=== PATIENT | male | born 1935 | race Caucasian/White ===

== ENCOUNTER 2022-10-24 21:38 | Inpatient (IN) | payer MEDICARE ==
[2022-10-24 22:03] LABS: #Basophils 0.1 thou/uL (0.0-0.2); #Monocytes 1.6 thou/uL (0.11-0.59); #Neutrophils 10.5 thou/uL (1.40-6.50); %Basophils 0.6 % (0.0-1.0); %Lymphocytes 9.8 % (21.0-51.0); %Monocytes 11.5 % (0.0-10.0); %Neutrophils 76.8 % (42.0-75.0); Hematocrit 50.2 % (42.0-52.0); Hemoglobin 16.1 g/dL (14.0-18.0); Mean Corpuscular HGB CONC 32.1 g/dL (32.0-36.0); Mean Corpuscular Volume 99.8 fl (78.0-98.0); Mean Platelet Volume 9.5 fL (7.4-10.4); Platelet Count 245 10x3/uL (130-400); RBC Distribution Width 13.8 % (11.5-14.5); Red Blood Cell (RBC) Count 5.03 mill/uL (4.70-6.10); White Blood Cell (WBC) Count 13.7 10x3/uL (4.8-10.8)
[2022-10-24] MEDS ORDERED: Cefepime 2 GM VIAL ONE (22:20)
[2022-10-24] MEDS ORDERED: Acetaminophen 650 MG Suppository ONE (22:20)
[2022-10-24 22:21] LABS: INR-International Normal Ratio 1.4; Prothrombin Time 17.5 sec (12.0-14.7)
[2022-10-24 22:22] LABS: PTT 28.4 sec (22.9-36.1)
[2022-10-24] MEDS ORDERED: Vancomycin 1.5 GRAM/300 ML BAG 1.5 GM in Premix Bag 1 BAG IVPB SCH (22:30)
[2022-10-24 22:31] LABS: ALT (SGPT) 21 U/L (8-55); AST (SGOT) 124 U/L (5-34); Albumin 3.6 g/dL (3.4-4.8); Alkaline Phosphatase 108 U/L (40-110); Anion Gap 27 mmol/L (10-20); BUN (Urea Nitrogen) 60 mg/dL (8.4-25.7); Bilirubin, Total 1.3 mg/dL (0.2-1.2); CK (CPK) 1694 U/L (30-200); Calc. Creatinine Clearance 0 mL/min (70-130); Calcium 9.6 mg/dL (7.8-10.44); Carbon Dioxide 12 mmol/L (23-31); Chloride 114 mmol/L (98-107); Estimated GFR 14; Globulin 3.8 g/dL (2.4-3.5); Glucose 127 mg/dL (83-110); Potassium 3.8 mmol/L (3.5-5.1); Protein, Total 7.4 g/dL (5.8-8.1); Sodium 149 mmol/L (136-145)
[2022-10-24 22:32] LABS: Base Excess -14.2 mEq/L (-2.0 to +3.0); Calcium, Ionized (venous) 1.13 mmol/L (1.16-1.32); Chloride (VBG) 112 mmol/L (98-106); Hematocrit-VBG 53 % (42.0-52.0); Hemoglobin (Hb) 17.9 g/dL (12.6-17.4)
[2022-10-24 22:34] LABS: pH (venous) 7.184 (7.32-7.43)
[2022-10-24 22:41] LABS: Bilirubin Small (Negative); Blood, Urine Large (Negative); Glucose, Urine (Dipstick) 100 mg/dL (Negative); Ketone, Urine Trace mg/dL (Negative); Leukocyte Negative (Negative); Nitrite Negative (Negative); Protein, Urine (Dipstick) > or equal to 300 mg/dL (Neg-Trace)
[2022-10-24 22:43] LABS: Specific Gravity, Urine 1.023 (1.002-1.036)
[2022-10-24 22:46] LABS: Clarity Cloudy (Clear)
[2022-10-24 22:47] LABS: RBC/HPF Greater than 50 HPF (0-3)
[2022-10-24 22:50] LABS: Bacteria/HPF 2+ HPF (None Seen); CAUTI Indications for Culture Alt mental st,lethar
[2022-10-24 22:54] LABS: Renal Epithelial 0-3 HPF (None Seen); Squamous Epithelial 0-3 HPF (0-3)
[2022-10-24 22:57] LABS: Urine Culture Reflex No No
[2022-10-24 23:07] LABS: CKMB 11.3 ng/mL (0-6.6)
[2022-10-24] MEDS ORDERED: Sodium Bicarb 50 MEQ/50 ML VIAL IVP SCH (23:15)
[2022-10-24] MEDS ORDERED: Sodium Bicarb 50 MEQ/50 ML VIAL ONE (23:49)
[2022-10-24] MEDS ORDERED: Heparin 10,000 UNITS/ 10 ML VIAL ONE (23:49)
[2022-10-24] MEDS ORDERED: Aspirin 300 MG Suppository ONE (23:49)
[2022-10-24] MEDS ORDERED: Heparin 25,000 units/D5W 0 ML ONE (23:50)
[2022-10-25] MEDS ORDERED: NOREPINEPHRINE 8 MG/250 ML-D5W 250 ML IVPB PRN (00:02)
[2022-10-25] MEDS ORDERED: Lorazepam 1 MG TAB PO PRN (00:08)
[2022-10-25] MEDS ORDERED: Lorazepam 2 MG/ML VIAL IM PRN (00:08)
[2022-10-25] MEDS ORDERED: Ondansetron ODT 4 MG TAB PO PRN (00:08)
[2022-10-25] MEDS ORDERED: Sodium Bicarbonate 150 MEQ in Dextrose 5% in Water 1,000 ML IV SCH (00:15)
[2022-10-25] MEDS ORDERED: Morphine 2 MG/ML VIAL SLOW IVP PRN (00:15)
[2022-10-25] MEDS ORDERED: Propofol 1,000 MG/100 ML VIAL IV PRN (00:15)
[2022-10-25] MEDS ORDERED: Fentanyl CADD 100 ML IV SCH (00:15)
[2022-10-25] MEDS ORDERED: DISCONTINUE PREVIOUS NARCOTIC PAIN MEDICATIONS AND BENZODIAZEPINES FS SCH (00:15)
[2022-10-25] MEDS ORDERED: Lorazepam 1 MG TAB PO SCH (00:15)
[2022-10-25] MEDS ORDERED: Fentanyl BOLUS 250 ML IVPB PRN (00:15)
[2022-10-25] MEDS ORDERED: Lorazepam 2 MG/ML VIAL SLOW IVP PRN (00:15)
[2022-10-25] MEDS ORDERED: Propofol BOLUS 1,000 MG/100 ML VIAL IV PRN (00:15)
[2022-10-25] MEDS ORDERED: Electrolyte Replacement Protocol 1 EACH FS SCH (00:15)
[2022-10-25] MEDS ORDERED: Ventilator Sedation Protocol 1 EACH FS SCH (00:15)
[2022-10-25] MEDS ORDERED: Acetaminophen 650 MG/20.3 ML UDCUP PO PRN (00:19)
[2022-10-25 00:52] LABS: #Basophils 0.1 thou/uL (0.0-0.2); #Eosinphils 0.2 thou/uL (0.0-0.7); #Monocytes 2.9 thou/uL (0.11-0.59); #Neutrophils 13.6 thou/uL (1.40-6.50); %Basophils 0.4 % (0.0-1.0); %Eosinophils 0.8 % (0.0-10.0); %Lymphocytes 12.7 % (21.0-51.0); %Monocytes 14.9 % (0.0-10.0); %Neutrophils 70.3 % (42.0-75.0); Hematocrit 48.2 % (42.0-52.0); Hemoglobin 15.8 g/dL (14.0-18.0); Mean Corpuscular HGB CONC 32.8 g/dL (32.0-36.0); Mean Corpuscular Volume 97.8 fl (78.0-98.0); Mean Platelet Volume 9.5 fL (7.4-10.4); Platelet Count 254 10x3/uL (130-400); RBC Distribution Width 13.9 % (11.5-14.5); Red Blood Cell (RBC) Count 4.93 mill/uL (4.70-6.10); White Blood Cell (WBC) Count 19.4 10x3/uL (4.8-10.8)
[2022-10-25] MEDS ORDERED: Glucagon 1 MG/ML KIT IM PRN (00:56)
[2022-10-25] MEDS ORDERED: Dextrose 5% in Water 1,000 ML IV PRN (00:56)
[2022-10-25] MEDS ORDERED: Dextrose 50% Abboject 50 ML SYRINGE SLOW IVP PRN (00:56)
[2022-10-25] MEDS ORDERED: Pantoprazole 40 MG VIAL IVP SCH (01:00)
[2022-10-25] MEDS ORDERED: Piperacillin/Tazobactam 3.375 GM in Sodium Chloride 0.9% 100 ML IVPB SCH ×3 (01:00→06:00)
[2022-10-25] MEDS ORDERED: DC Sedation Protocol FS ONE (01:08)
[2022-10-25 01:17] LABS: Lactic Acid 8.9 mmol/L (0.5-2.2)
[2022-10-25 01:27] LABS: ALV-art Gradient 13.005 mmHg (0-20); Actual Bicarbonate (HCO3a) 18.3 mEq/L (22-28); Base Excess (BEa) -5.1 mEq/L (-2.0 to +3.0); CO2 Tension 30.5 mmHg (35.0-45.0); Calcium, Ionized (arterial) 1.21 mmol/L (1.12-1.30); Carboxyhemoglobin (COHb) 0.3 gm% (0.0-3.0); Hematocrit-ABG 48 % (42.0-52.0); Hemoglobin (Hb) 16.2 g/dL (14.0-18.0); O2 Tension (PaO2), arterial 98.6 mmHg (> 60.0); Potassium - ABG Lab 3.57 mmol/L (3.70-5.30); pH, Arterial 7.396 (7.35-7.45)
[2022-10-25 01:42] LABS: Magnesium 2.6 mg/dL (1.6-2.6); Phosphorus 5.2 mg/dL (2.3-4.7)
[2022-10-25 01:44] LABS: Acetaminophen Less than 10 mcg/mL (10.0-30.0); Alcohol Less than 10.0 mg/dL (Less than 10); Salicylate Less than 8.0 mg/dL (15.0-30.0)
[2022-10-25] MEDS: Thiamine HCl 200 MG/2 ML VIAL SLOW IVP SCH (02:01)
[2022-10-25 02:51] LABS: Troponin I 1.098 ng/mL (< 0.028)
[2022-10-25 03:09] LABS: Amphetamine Not Detected (NotDetected); Barbiturates Screen Not Detected (NotDetected); Benzodiazepine Screen Not Detected (NotDetected); Cocaine Metabolite Screen Not Detected (NotDetected); Methadone Not Detected (NotDetected); Methamphetamine Not Detected (NotDetected); Opiate Screen Not Detected (NotDetected); Oxycodone Screen Not Detected (NotDetected); Phencyclidine (PCP) Not Detected (NotDetected); THC/Cannabinoid Screen Not Detected (NotDetected); Tricyclic Screen Not Detected (NotDetected)
[2022-10-25 04:10] LABS: Lactic Acid 3.1 mmol/L (0.5-2.2)
[2022-10-25 04:17] LABS: Troponin I 1.794 ng/mL (< 0.028)
[2022-10-25 05:59] LABS: ALT (SGPT) 29 U/L (8-55); AST (SGOT) 224 U/L (5-34); Albumin 3.4 g/dL (3.4-4.8); Alkaline Phosphatase 95 U/L (40-110); Anion Gap 20 mmol/L (10-20); BUN (Urea Nitrogen) 69 mg/dL (8.4-25.7); Bilirubin, Total 1.7 mg/dL (0.2-1.2); Calc. Creatinine Clearance 10 mL/min (70-130); Calcium 9.2 mg/dL (7.8-10.44); Carbon Dioxide 18 mmol/L (23-31); Chloride 112 mmol/L (98-107); Estimated GFR 14; Globulin 3.8 g/dL (2.4-3.5); Glucose 184 mg/dL (83-110); Potassium 3.4 mmol/L (3.5-5.1); Protein, Total 7.2 g/dL (5.8-8.1); Sodium 147 mmol/L (136-145)
[2022-10-25] MEDS: Sodium Bicarbonate 50 MEQ in Sodium Chloride 0.45% 1,000 ML IV SCH ×4 (07:44→21:23)
[2022-10-25] MEDS ORDERED: Potassium Chloride 20 MEQ TAB PO SCH (08:00)
[2022-10-25 09:32] LABS: Creatinine, Urine 183.58 mg/dL (63-166)
[2022-10-25] MEDS: Pantoprazole 40 MG VIAL IVP SCH ×2 (09:53→21:22)
[2022-10-25] MEDS: Folic Acid 1 MG TAB PO SCH (09:53)
[2022-10-25] MEDS: Multivit, Therapeutic 1 TAB PO SCH (09:53)
[2022-10-25] MEDS ORDERED: Potassium Chloride 20 MEQ in Premix Bag 1 BAG IVPB SCH (10:30)
[2022-10-25 10:33] LABS: Hematocrit 43.3 % (42.0-52.0)
[2022-10-25 10:41] LABS: Hemoglobin 14.8 g/dL (14.0-18.0)
[2022-10-25 11:01] LABS: Anion Gap 20 mmol/L (10-20); BUN (Urea Nitrogen) 68 mg/dL (8.4-25.7); Calc. Creatinine Clearance 11 mL/min (70-130); Carbon Dioxide 22 mmol/L (23-31); Chloride 111 mmol/L (98-107); Estimated GFR 14; Glucose 118 mg/dL (83-110); Potassium 3.3 mmol/L (3.5-5.1); Sodium 150 mmol/L (136-145)
[2022-10-25 11:14] LABS: CK (CPK) 4973 U/L (30-200)
[2022-10-25] MEDS ORDERED: Sodium Chloride 0.9% 1,000 ML IV SCH (14:45)
[2022-10-25] MEDS: Dextrose 5% in Water 1,000 ML IV SCH (15:03)
[2022-10-25 16:00] LABS: Anion Gap 18 mmol/L (10-20); BUN (Urea Nitrogen) 64 mg/dL (8.4-25.7); Calc. Creatinine Clearance 11 mL/min (70-130); Calcium 8.4 mg/dL (7.8-10.44); Carbon Dioxide 23 mmol/L (23-31); Chloride 110 mmol/L (98-107); Estimated GFR 16; Glucose 107 mg/dL (83-110); Potassium 3.8 mmol/L (3.5-5.1); Sodium 147 mmol/L (136-145)
[2022-10-25 17:47] LABS: Hematocrit 45.2 % (42.0-52.0)
[2022-10-25 21:35] LABS: Anion Gap 18 mmol/L (10-20); BUN (Urea Nitrogen) 62 mg/dL (8.4-25.7); Calc. Creatinine Clearance 13 mL/min (70-130); Carbon Dioxide 20 mmol/L (23-31); Chloride 110 mmol/L (98-107); Potassium 3.5 mmol/L (3.5-5.1); Sodium 144 mmol/L (136-145)
[2022-10-25 21:36] LABS: Estimated GFR 18; Glucose 122 mg/dL (83-110)
[2022-10-25] MEDS ORDERED: Cefepime 1 GM in Sodium Chloride 0.9% 100 ML IVPB SCH (22:00)
[2022-10-26] MEDS: Dextrose 5% in Water 1,000 ML IV SCH
[2022-10-26] MEDS ORDERED: Lorazepam 1 MG TAB PO PRN (00:08)
[2022-10-26] MEDS: Thiamine HCl 200 MG/2 ML VIAL SLOW IVP SCH (00:12)
[2022-10-26] MEDS: Sodium Bicarbonate 50 MEQ in Sodium Chloride 0.45% 1,000 ML IV SCH ×2 (03:50→08:05)
[2022-10-26 07:33] LABS: #Eosinphils 0.1 thou/uL (0.0-0.7); #Monocytes 0.9 thou/uL (0.11-0.59); #Neutrophils 7.5 thou/uL (1.40-6.50); %Basophils 0.2 % (0.0-1.0); %Eosinophils 0.4 % (0.0-10.0); %Monocytes 7.6 % (0.0-10.0); Mean Corpuscular HGB CONC 34.1 g/dL (32.0-36.0); Mean Corpuscular Hemoglobin 32.1 pg (27.0-31.0); Mean Platelet Volume 9.8 fL (7.4-10.4); Platelet Count 162 10x3/uL (130-400); RBC Distribution Width 13.7 % (11.5-14.5); Red Blood Cell (RBC) Count 3.65 mill/uL (4.70-6.10); White Blood Cell (WBC) Count 11.3 10x3/uL (4.8-10.8)
[2022-10-26 07:36] LABS: Hematocrit 34.3 % (42.0-52.0); Hemoglobin 11.7 g/dL (14.0-18.0)
[2022-10-26 08:00] LABS: Anion Gap 11 mmol/L (10-20); BUN (Urea Nitrogen) 49 mg/dL (8.4-25.7); CK (CPK) 2918 U/L (30-200); Calc. Creatinine Clearance 20 mL/min (70-130); Calcium 7.3 mg/dL (7.8-10.44); Carbon Dioxide 27 mmol/L (23-31); Chloride 105 mmol/L (98-107); Estimated GFR 27; Glucose 117 mg/dL (83-110); Sodium 140 mmol/L (136-145)
[2022-10-26] MEDS: Pantoprazole 40 MG VIAL IVP SCH ×2 (08:05→20:11)
[2022-10-26] MEDS: Multivit, Therapeutic 1 TAB PO SCH (08:22)
[2022-10-26] MEDS: Folic Acid 1 MG TAB PO SCH (08:22)
[2022-10-26] MEDS: Lactated Ringer's 1,000 ML IV SCH ×4 (08:59→20:11)
[2022-10-26 09:39] LABS: Phosphorus 2.5 mg/dL (2.3-4.7)
[2022-10-26] MEDS ORDERED: Potassium Chloride 20 MEQ in Premix Bag 1 BAG IVPB SCH (10:00)
[2022-10-26] MEDS ORDERED: Dextrose 5% in Water 1,000 ML IV SCH (13:00)
[2022-10-26] MEDS: Apixaban 2.5 MG TAB PO SCH (20:11)
[2022-10-27] MEDS ORDERED: Lorazepam 1 MG TAB PO PRN (00:08)
[2022-10-27] MEDS ORDERED: Lorazepam 0.5 MG TAB PO SCH (00:15)
[2022-10-27] MEDS: Thiamine HCl 200 MG/2 ML VIAL SLOW IVP SCH (01:17)
[2022-10-27] MEDS: Lactated Ringer's 1,000 ML IV SCH ×2 (01:18→05:23)
[2022-10-27 04:15] LABS: #Eosinphils 0.1 thou/uL (0.0-0.7); #Monocytes 0.7 thou/uL (0.11-0.59); #Neutrophils 5.5 thou/uL (1.40-6.50); %Basophils 0.2 % (0.0-1.0); %Lymphocytes 27.9 % (21.0-51.0); %Monocytes 7.7 % (0.0-10.0); %Neutrophils 62.7 % (42.0-75.0); Hematocrit 30.7 % (42.0-52.0); Hemoglobin 10.4 g/dL (14.0-18.0); Mean Corpuscular HGB CONC 33.9 g/dL (32.0-36.0); Mean Corpuscular Hemoglobin 32.3 pg (27.0-31.0); Mean Corpuscular Volume 95.3 fl (78.0-98.0); Platelet Count 151 10x3/uL (130-400); RBC Distribution Width 13.4 % (11.5-14.5); Red Blood Cell (RBC) Count 3.22 mill/uL (4.70-6.10); White Blood Cell (WBC) Count 8.7 10x3/uL (4.8-10.8)
[2022-10-27 04:41] LABS: Anion Gap 11 mmol/L (10-20); BUN (Urea Nitrogen) 28 mg/dL (8.4-25.7); Calc. Creatinine Clearance 36 mL/min (70-130); Calcium 7.2 mg/dL (7.8-10.44); Carbon Dioxide 25 mmol/L (23-31); Chloride 104 mmol/L (98-107); Estimated GFR 56; Glucose 82 mg/dL (83-110); Potassium 3.3 mmol/L (3.5-5.1); Sodium 137 mmol/L (136-145)
[2022-10-27 08:02] LABS: CK (CPK) 2058 U/L (30-200); Magnesium 1.5 mg/dL (1.6-2.6); Phosphorus 1.8 mg/dL (2.3-4.7)
[2022-10-27] MEDS ORDERED: Magnesium Sulfate In Water 4 GM in Premix Bag 1 BAG IVPB SCH (08:15)
[2022-10-27] MEDS ORDERED: Potassium Phosphate 22 MMOL in Sodium Chloride 0.9% 250 ML 250 ML IVPB SCH (08:15)
[2022-10-27] MEDS ORDERED: PHOS-NAK 1 PKT PACK PO SCH (08:30)
[2022-10-27] MEDS: Dextrose 5%-Lactated Ringers 1,000 ML IV SCH ×3 (09:13→23:04)
[2022-10-27] MEDS: Multivit, Therapeutic 1 TAB PO SCH (09:14)
[2022-10-27] MEDS: Apixaban 2.5 MG TAB PO SCH ×2 (09:14→22:17)
[2022-10-27] MEDS: Folic Acid 1 MG TAB PO SCH (09:15)
[2022-10-27] MEDS: Pantoprazole 40 MG VIAL IVP SCH (09:15)
[2022-10-27] MEDS: guaiFENesin 200 MG TAB PO PRN ×2 (09:15→18:45)
[2022-10-27] MEDS ORDERED: PROPOFOL 200 MG/20 ML VIAL ONE (13:04)
[2022-10-28] MEDS ORDERED: Lorazepam 0.5 MG TAB PO PRN (00:08)
[2022-10-28] MEDS ORDERED: Lorazepam 2 MG/ML VIAL SLOW IVP SCH (03:00)
[2022-10-28] MEDS: Thiamine 100 MG TAB PO SCH (04:42)
[2022-10-28 05:12] LABS: #Basophils 0.1 thou/uL (0.0-0.2); #Eosinphils 0.1 thou/uL (0.0-0.7); #Monocytes 0.7 thou/uL (0.11-0.59); #Neutrophils 5.8 thou/uL (1.40-6.50); %Basophils 0.5 % (0.0-1.0); %Eosinophils 1.4 % (0.0-10.0); %Lymphocytes 27.4 % (21.0-51.0); %Monocytes 7.5 % (0.0-10.0); %Neutrophils 62.3 % (42.0-75.0); Mean Corpuscular HGB CONC 34.3 g/dL (32.0-36.0); Mean Corpuscular Hemoglobin 32.2 pg (27.0-31.0); Mean Corpuscular Volume 93.8 fl (78.0-98.0); Mean Platelet Volume 10.4 fL (7.4-10.4); Platelet Count 169 10x3/uL (130-400); RBC Distribution Width 13.2 % (11.5-14.5); Red Blood Cell (RBC) Count 3.73 mill/uL (4.70-6.10); White Blood Cell (WBC) Count 9.4 10x3/uL (4.8-10.8)
[2022-10-28 05:47] LABS: Phosphorus 2.4 mg/dL (2.3-4.7)
[2022-10-28 05:49] LABS: Anion Gap 9 mmol/L (10-20); BUN (Urea Nitrogen) 17 mg/dL (8.4-25.7); Calc. Creatinine Clearance 48 mL/min (70-130); Calcium 7.6 mg/dL (7.8-10.44); Carbon Dioxide 28 mmol/L (23-31); Chloride 104 mmol/L (98-107); Estimated GFR 77; Glucose 84 mg/dL (83-110); Magnesium 2.1 mg/dL (1.6-2.6); Sodium 138 mmol/L (136-145)
[2022-10-28] MEDS ORDERED: Potassium Chloride 40 MEQ in Premix Bag 1 BAG IVPB SCH (08:45)
[2022-10-28] MEDS ORDERED: Ergocalciferol 1.25 MG(50,000 UNITS) CAP PO SCH (09:00)
[2022-10-28] MEDS: Potassium Chloride 20 MEQ TAB PO SCH ×2 (10:08→11:27)
[2022-10-28] MEDS: Apixaban 2.5 MG TAB PO SCH ×2 (10:08→20:51)
[2022-10-28] MEDS: Folic Acid 1 MG TAB PO SCH (10:08)
[2022-10-28] MEDS: Multivit, Therapeutic 1 TAB PO SCH (10:09)
[2022-10-28] MEDS: Potassium Chloride 40 MEQ in Dextrose 5%-Lactated Ringers 1,000 ML IV SCH ×2 (11:01→20:53)
[2022-10-28] MEDS ORDERED: Thiamine HCl 200 MG/2 ML VIAL IM SCH (12:15)
[2022-10-28] MEDS: QUEtiapine 25 MG TAB PO SCH (20:51)
[2022-10-29 04:47] LABS: #Eosinphils 0.1 thou/uL (0.0-0.7); #Neutrophils 6.5 thou/uL (1.40-6.50); %Basophils 0.4 % (0.0-1.0); %Eosinophils 1.1 % (0.0-10.0); %Monocytes 10.2 % (0.0-10.0); %Neutrophils 65.7 % (42.0-75.0); Hematocrit 32.7 % (42.0-52.0); Hemoglobin 11.2 g/dL (14.0-18.0); Mean Corpuscular HGB CONC 34.3 g/dL (32.0-36.0); Mean Corpuscular Hemoglobin 32.6 pg (27.0-31.0); Mean Corpuscular Volume 95.1 fl (78.0-98.0); Mean Platelet Volume 10.2 fL (7.4-10.4); Platelet Count 189 10x3/uL (130-400); RBC Distribution Width 13.4 % (11.5-14.5); Red Blood Cell (RBC) Count 3.44 mill/uL (4.70-6.10); White Blood Cell (WBC) Count 9.9 10x3/uL (4.8-10.8)
[2022-10-29 05:09] LABS: Anion Gap 12 mmol/L (10-20); BUN (Urea Nitrogen) 10 mg/dL (8.4-25.7); CK (CPK) 1088 U/L (30-200); Calc. Creatinine Clearance 55 mL/min (70-130); Calcium 7.8 mg/dL (7.8-10.44); Carbon Dioxide 26 mmol/L (23-31); Chloride 106 mmol/L (98-107); Estimated GFR 84; Glucose 61 mg/dL (83-110); Potassium 3.9 mmol/L (3.5-5.1); Sodium 140 mmol/L (136-145)
[2022-10-29] MEDS: Thiamine 100 MG TAB PO SCH (05:18)
[2022-10-29] MEDS: Multivit, Therapeutic 1 TAB PO SCH (12:28)
[2022-10-29] MEDS: Folic Acid 1 MG TAB PO SCH (12:28)
[2022-10-29] MEDS: Apixaban 2.5 MG TAB PO SCH ×2 (12:28→20:50)
[2022-10-29] MEDS: Lorazepam 2 MG/ML VIAL SLOW IVP PRN ×2 (12:38→21:26)
[2022-10-29] MEDS: Potassium Chloride 40 MEQ in Dextrose 5%-Lactated Ringers 1,000 ML IV SCH ×2 (12:43→21:35)
[2022-10-29] MEDS: Acetaminophen 650 MG Suppository PR PRN (14:36)
[2022-10-29] MEDS: QUEtiapine 25 MG TAB PO SCH (20:50)
[2022-10-30] MEDS: Lorazepam 2 MG/ML VIAL SLOW IVP PRN ×2 (00:32→21:54)
[2022-10-30] MEDS ORDERED: Lorazepam 2 MG/ML VIAL SLOW IVP SCH (01:30)
[2022-10-30] MEDS: Acetaminophen 650 MG Suppository PR PRN ×2 (01:34→21:18)
[2022-10-30 04:44] LABS: #Eosinphils 0.1 thou/uL (0.0-0.7); #Monocytes 1.2 thou/uL (0.11-0.59); #Neutrophils 5.5 thou/uL (1.40-6.50); %Basophils 0.5 % (0.0-1.0); %Eosinophils 0.9 % (0.0-10.0); %Lymphocytes 15.9 % (21.0-51.0); %Monocytes 14.5 % (0.0-10.0); %Neutrophils 67.3 % (42.0-75.0); Hematocrit 34.3 % (42.0-52.0); Hemoglobin 11.5 g/dL (14.0-18.0); Mean Corpuscular HGB CONC 33.5 g/dL (32.0-36.0); Mean Corpuscular Volume 95.5 fl (78.0-98.0); Mean Platelet Volume 10.1 fL (7.4-10.4); Platelet Count 197 10x3/uL (130-400); RBC Distribution Width 13.8 % (11.5-14.5); Red Blood Cell (RBC) Count 3.59 mill/uL (4.70-6.10); White Blood Cell (WBC) Count 8.1 10x3/uL (4.8-10.8)
[2022-10-30 05:12] LABS: Anion Gap 15 mmol/L (10-20); BUN (Urea Nitrogen) 8 mg/dL (8.4-25.7); CK (CPK) 1436 U/L (30-200); Calc. Creatinine Clearance 58 mL/min (70-130); Calcium 7.8 mg/dL (7.8-10.44); Carbon Dioxide 21 mmol/L (23-31); Chloride 105 mmol/L (98-107); Estimated GFR 83; Potassium 3.8 mmol/L (3.5-5.1); Sodium 137 mmol/L (136-145)
[2022-10-30 05:15] LABS: Glucose 54 mg/dL (83-110)
[2022-10-30] MEDS: Thiamine 100 MG TAB PO SCH (06:13)
[2022-10-30] MEDS: Potassium Chloride 40 MEQ in Dextrose 5%-Lactated Ringers 1,000 ML IV SCH ×3 (10:12→18:44)
[2022-10-30] MEDS: Multivit, Therapeutic 1 TAB PO SCH (17:15)
[2022-10-30] MEDS: Apixaban 2.5 MG TAB PO SCH ×2 (17:15→21:30)
[2022-10-30] MEDS: Folic Acid 1 MG TAB PO SCH (17:15)
[2022-10-30] MEDS: D5W-AA 4.25% with LYTES 1,000 ML IV SCH (18:45)
[2022-10-30] MEDS ORDERED: Acetaminophen 650 MG Suppository PR SCH (21:30)
[2022-10-30] MEDS: QUEtiapine 25 MG TAB PO SCH (21:30)
[2022-10-30 21:53] LABS: #Basophils 0.1 thou/uL (0.0-0.2); #Eosinphils 0.1 thou/uL (0.0-0.7); #Monocytes 1.1 thou/uL (0.11-0.59); #Neutrophils 5.1 thou/uL (1.40-6.50); %Lymphocytes 27.6 % (21.0-51.0); %Monocytes 12.6 % (0.0-10.0); %Neutrophils 57.2 % (42.0-75.0); Hematocrit 35.6 % (42.0-52.0); Mean Corpuscular HGB CONC 33.7 g/dL (32.0-36.0); Mean Corpuscular Hemoglobin 31.8 pg (27.0-31.0); Mean Corpuscular Volume 94.4 fl (78.0-98.0); Platelet Count 208 10x3/uL (130-400); RBC Distribution Width 14.1 % (11.5-14.5); Red Blood Cell (RBC) Count 3.77 mill/uL (4.70-6.10); White Blood Cell (WBC) Count 8.9 10x3/uL (4.8-10.8)
[2022-10-30] MEDS ORDERED: Vancomycin 1.5 GRAM/300 ML BAG 1.5 GM in Premix Bag 1 BAG IVPB SCH (22:00)
[2022-10-30 22:11] LABS: Lactic Acid 3.2 mmol/L (0.5-2.2)
[2022-10-30] MEDS: Cefepime 1 GM in Sodium Chloride 0.9% 100 ML IVPB SCH (22:16)
[2022-10-30 22:22] LABS: ALT (SGPT) 49 U/L (8-55); AST (SGOT) 206 U/L (5-34); Albumin 2.7 g/dL (3.4-4.8); Alkaline Phosphatase 65 U/L (40-110); Anion Gap 14 mmol/L (10-20); BUN (Urea Nitrogen) 9 mg/dL (8.4-25.7); Bilirubin, Total 0.7 mg/dL (0.2-1.2); Calc. Creatinine Clearance 59 mL/min (70-130); Carbon Dioxide 21 mmol/L (23-31); Chloride 106 mmol/L (98-107); Estimated GFR 84; Globulin 2.8 g/dL (2.4-3.5); Glucose 81 mg/dL (83-110); Potassium 4.5 mmol/L (3.5-5.1); Protein, Total 5.5 g/dL (5.8-8.1); Sodium 136 mmol/L (136-145)
[2022-10-30 22:52] LABS: SARS-CoV-2 NAA Rapid Test DETECTED (NotDetected)
[2022-10-30] MEDS ORDERED: Furosemide 40 MG/4 ML VIAL SLOW IVP SCH (23:45)
[2022-10-30] MEDS ORDERED: Furosemide 20 MG/2 ML VIAL SLOW IVP SCH (23:45)
[2022-10-30 23:52] LABS: Actual Bicarbonate (HCO3a) 20.2 mEq/L (22-28); Base Excess (BEa) -0.9 mEq/L (-2.0 to +3.0); Calcium, Ionized (arterial) 1.07 mmol/L (1.12-1.30); Carboxyhemoglobin (COHb) 0.1 gm% (0.0-3.0); Hematocrit-ABG 36 % (42.0-52.0); Hemoglobin (Hb) 12.2 g/dL (14.0-18.0); O2 Tension (PaO2), arterial 62.3 mmHg (> 60.0); Potassium - ABG Lab 4.28 mmol/L (3.70-5.30); pH, Arterial 7.539 (7.35-7.45)
[2022-10-30 23:55] LABS: Puncture Site RRA
[2022-10-31] MEDS ORDERED: Dexmedetomidine In 0.9 % NaCl 100 ML IVPB SCH (00:15)
[2022-10-31] MEDS ORDERED: Dexmedetomidine 400 MCG, Admixture Fee 1 EACH in Sodium Chloride 0.9% 96 ML IVPB SCH (00:30)
[2022-10-31] MEDS ORDERED: Furosemide 40 MG/4 ML VIAL ONE (00:33)
[2022-10-31] MEDS: Potassium Chloride 40 MEQ in Dextrose 5%-Lactated Ringers 1,000 ML IV SCH (00:37)
[2022-10-31] MEDS ORDERED: Furosemide 40 MG/4 ML VIAL SLOW IVP SCH (00:45)
[2022-10-31] MEDS: Morphine 2 MG/ML VIAL SLOW IVP PRN (00:57)
[2022-10-31 01:54] LABS: Bacteria/HPF None Seen HPF (None Seen); Bilirubin Negative (Negative); Blood, Urine 3+ (Negative); CAUTI Indications for Culture Fever or rigors; Clarity Clear (Clear); Glucose, Urine (Dipstick) Normal (Negative); Ketone, Urine Negative (Negative); Leukocyte Negative Leu/uL (Negative); Nitrite Negative (Negative); Protein, Urine (Dipstick) 10 mg/dL (Neg-Trace); Specific Gravity, Urine 1.013 (1.002-1.036); Squamous Epithelial 0-3 HPF (0-3); Urobilinogen Normal mg/dL (Less than 2); pH, Urine 7.5 (5.0-9.0)
[2022-10-31 01:59] LABS: Urine Culture Reflex No No
[2022-10-31] MEDS: Acetaminophen 650 MG Suppository PR PRN (02:02)
[2022-10-31] MEDS: Thiamine 100 MG TAB PO SCH (05:16)
[2022-10-31 06:47] LABS: #Basophils 0.1 thou/uL (0.0-0.2); #Monocytes 1.3 thou/uL (0.11-0.59); #Neutrophils 5.6 thou/uL (1.40-6.50); %Basophils 0.8 % (0.0-1.0); %Eosinophils 0.3 % (0.0-10.0); %Lymphocytes 19.3 % (21.0-51.0); %Neutrophils 63.9 % (42.0-75.0); Hematocrit 35.2 % (42.0-52.0); Hemoglobin 11.7 g/dL (14.0-18.0); Mean Corpuscular HGB CONC 33.2 g/dL (32.0-36.0); Mean Corpuscular Hemoglobin 32.2 pg (27.0-31.0); Platelet Count 188 10x3/uL (130-400); RBC Distribution Width 14.2 % (11.5-14.5); Red Blood Cell (RBC) Count 3.63 mill/uL (4.70-6.10); White Blood Cell (WBC) Count 8.7 10x3/uL (4.8-10.8)
[2022-10-31 07:12] LABS: ALT (SGPT) 43 U/L (8-55); AST (SGOT) 197 U/L (5-34); Albumin 2.4 g/dL (3.4-4.8); Alkaline Phosphatase 58 U/L (40-110); Anion Gap 13 mmol/L (10-20); BUN (Urea Nitrogen) 10 mg/dL (8.4-25.7); Bilirubin, Total 0.6 mg/dL (0.2-1.2); Calc. Creatinine Clearance 50 mL/min (70-130); Calcium 7.8 mg/dL (7.8-10.44); Carbon Dioxide 19 mmol/L (23-31); Chloride 107 mmol/L (98-107); Estimated GFR 76; Globulin 2.7 g/dL (2.4-3.5); Glucose 69 mg/dL (83-110); Potassium 4.1 mmol/L (3.5-5.1); Protein, Total 5.1 g/dL (5.8-8.1); Sodium 135 mmol/L (136-145)
[2022-10-31] MEDS: Apixaban 2.5 MG TAB PO SCH ×2 (09:37→21:34)
[2022-10-31] MEDS: Multivit, Therapeutic 1 TAB PO SCH (11:16)
[2022-10-31] MEDS: Folic Acid 1 MG TAB PO SCH (11:16)
[2022-10-31] MEDS: Vancomycin 1 GM in Premix Bag 1 BAG IVPB SCH ×2 (11:17→21:59)
[2022-10-31] MEDS: Dextrose 5%-Lactated Ringers 1,000 ML IV SCH ×2 (11:17→23:31)
[2022-10-31] MEDS: D5W-AA 4.25% with LYTES 1,000 ML IV SCH (14:34)
[2022-10-31] MEDS: Cefepime 1 GM in Sodium Chloride 0.9% 100 ML IVPB SCH ×2 (14:34→23:28)
[2022-10-31] MEDS: QUEtiapine 25 MG TAB PO SCH (21:34)
[2022-10-31] MEDS: Thiamine HCl 200 MG/2 ML VIAL SLOW IVP SCH (23:29)
[2022-11-01] MEDS ORDERED: Ipratropium/Albuterol 3 ML NEB NEB PRN (02:14)
[2022-11-01 03:59] LABS: #Basophils 0.1 thou/uL (0.0-0.2); #Monocytes 0.7 thou/uL (0.11-0.59); #Neutrophils 5.7 thou/uL (1.40-6.50); %Basophils 0.8 % (0.0-1.0); %Eosinophils 0.4 % (0.0-10.0); %Lymphocytes 26.4 % (21.0-51.0); %Monocytes 8.1 % (0.0-10.0); %Neutrophils 63.9 % (42.0-75.0); Hematocrit 33.8 % (42.0-52.0); Hemoglobin 11.7 g/dL (14.0-18.0); Mean Corpuscular HGB CONC 34.6 g/dL (32.0-36.0); Mean Corpuscular Hemoglobin 31.7 pg (27.0-31.0); Mean Platelet Volume 10.2 fL (7.4-10.4); Platelet Count 194 10x3/uL (130-400); Red Blood Cell (RBC) Count 3.69 mill/uL (4.70-6.10); White Blood Cell (WBC) Count 8.9 10x3/uL (4.8-10.8)
[2022-11-01 04:18] LABS: Mean Corpuscular Volume 91.6 fl (78.0-98.0)
[2022-11-01] MEDS ORDERED: D5W-AA 4.25% with LYTES 1,000 ML IV SCH (09:00)
[2022-11-01 09:41] LABS: CO2 Tension 24.2 mmHg (35.0-45.0)
[2022-11-01] MEDS: Multivit, Therapeutic 1 TAB PO SCH (09:59)
[2022-11-01] MEDS: Folic Acid 1 MG TAB PO SCH (09:59)
[2022-11-01] MEDS: Vancomycin 1 GM in Premix Bag 1 BAG IVPB SCH ×2 (10:00→10:30)
[2022-11-01] MEDS: Cefepime 1 GM in Sodium Chloride 0.9% 100 ML IVPB SCH ×2 (10:32→22:03)
[2022-11-01] MEDS: Vancomycin HCl 500 MG in Sodium Chloride 0.9% 100 ML IVPB SCH ×2 (11:11→22:02)
[2022-11-01] MEDS: Dextrose 5%-Lactated Ringers 1,000 ML IV SCH ×2 (11:12→23:45)
[2022-11-01] MEDS: Thiamine HCl 200 MG/2 ML VIAL SLOW IVP SCH (22:01)
[2022-11-01] MEDS: QUEtiapine 25 MG TAB PO SCH (22:01)
[2022-11-02] MEDS: Lorazepam 2 MG/ML VIAL SLOW IVP PRN (01:30)
[2022-11-02 03:56] LABS: #Basophils 0.1 thou/uL (0.0-0.2); #Monocytes 0.5 thou/uL (0.11-0.59); #Neutrophils 4.2 thou/uL (1.40-6.50); %Basophils 0.9 % (0.0-1.0); %Eosinophils 0.2 % (0.0-10.0); %Lymphocytes 27.7 % (21.0-51.0); %Monocytes 6.9 % (0.0-10.0); %Neutrophils 63.4 % (42.0-75.0); Hematocrit 30.8 % (42.0-52.0); Hemoglobin 10.5 g/dL (14.0-18.0); Mean Corpuscular HGB CONC 34.1 g/dL (32.0-36.0); Mean Corpuscular Volume 93.9 fl (78.0-98.0); Mean Platelet Volume 11.1 fL (7.4-10.4); Platelet Count 170 10x3/uL (130-400); RBC Distribution Width 14.4 % (11.5-14.5); Red Blood Cell (RBC) Count 3.28 mill/uL (4.70-6.10); White Blood Cell (WBC) Count 6.5 10x3/uL (4.8-10.8)
[2022-11-02 06:42] LABS: Anion Gap 13 mmol/L (10-20); BUN (Urea Nitrogen) 16 mg/dL (8.4-25.7); Calc. Creatinine Clearance 56 mL/min (70-130); Calcium 7.4 mg/dL (7.8-10.44); Carbon Dioxide 20 mmol/L (23-31); Chloride 105 mmol/L (98-107); Estimated GFR 84; Glucose 87 mg/dL (83-110); Potassium 3.2 mmol/L (3.5-5.1); Sodium 135 mmol/L (136-145)
[2022-11-02] MEDS: Potassium Chloride 20 MEQ in Premix Bag 1 BAG IVPB SCH ×2 (08:49→11:49)
[2022-11-02] MEDS: Multivit, Therapeutic 1 TAB PO SCH (08:50)
[2022-11-02] MEDS: Vancomycin HCl 500 MG in Sodium Chloride 0.9% 100 ML IVPB SCH ×2 (08:50→22:20)
[2022-11-02] MEDS: Folic Acid 1 MG TAB PO SCH (08:51)
[2022-11-02] MEDS: Potassium Chloride 40 MEQ in Dextrose 5%-Lactated Ringers 1,000 ML IV SCH ×4 (08:53→22:20)
[2022-11-02] MEDS ORDERED: Furosemide 20 MG/2 ML VIAL SLOW IVP SCH (11:00)
[2022-11-02 11:32] LABS: Actual Bicarbonate (HCO3v) 21.5 mEq/L (22-28); Calcium, Ionized (venous) 0.96 mmol/L (1.16-1.32); Chloride (VBG) 103 mmol/L (98-106); Hematocrit-VBG 37 % (42.0-52.0); Hemoglobin (Hb) 12.5 g/dL (12.6-17.4); Potassium (VBG) 3.05 mmol/L (3.70-5.30); Sodium 131.9 mmol/L (133-146); pH (venous) 7.482 (7.32-7.43)
[2022-11-02] MEDS: Cefepime 1 GM in Sodium Chloride 0.9% 100 ML IVPB SCH ×2 (11:43→22:20)
[2022-11-02 11:46] VITALS: BP 122/79
[2022-11-02] MEDS: QUEtiapine 25 MG TAB PO SCH (20:55)
[2022-11-02] MEDS ORDERED: NIRMATRELVIR 150 MG/RITONAVIR 100 MG PO SCH (21:00)
[2022-11-02 21:44] LABS: Vancomycin, Trough 14.6 ug/mL
[2022-11-02] MEDS: Thiamine HCl 200 MG/2 ML VIAL SLOW IVP SCH (22:22)
[2022-11-03] MEDS: Morphine 2 MG/ML VIAL SLOW IVP PRN ×3 (04:08→16:52)
[2022-11-03 04:26] LABS: #Monocytes 0.4 thou/uL (0.11-0.59); #Neutrophils 2.7 thou/uL (1.40-6.50); %Basophils 0.8 % (0.0-1.0); %Eosinophils 0.6 % (0.0-10.0); %Lymphocytes 39.3 % (21.0-51.0); %Monocytes 7.8 % (0.0-10.0); %Neutrophils 50.7 % (42.0-75.0); Hematocrit 30.9 % (42.0-52.0); Hemoglobin 10.4 g/dL (14.0-18.0); Mean Corpuscular HGB CONC 33.7 g/dL (32.0-36.0); Mean Corpuscular Hemoglobin 31.7 pg (27.0-31.0); Mean Corpuscular Volume 94.2 fl (78.0-98.0); Mean Platelet Volume 10.4 fL (7.4-10.4); Platelet Count 167 10x3/uL (130-400); RBC Distribution Width 14.5 % (11.5-14.5); Red Blood Cell (RBC) Count 3.28 mill/uL (4.70-6.10); White Blood Cell (WBC) Count 5.3 10x3/uL (4.8-10.8)
[2022-11-03] MEDS: Potassium Chloride 40 MEQ in Dextrose 5%-Lactated Ringers 1,000 ML IV SCH ×2 (05:30→14:55)
[2022-11-03 07:44] VITALS: TEMP 98.9
[2022-11-03 09:16] VITALS: BMI 21.0
[2022-11-03] MEDS: Multivit, Therapeutic 1 TAB PO SCH (09:35)
[2022-11-03] MEDS: Vancomycin HCl 500 MG in Sodium Chloride 0.9% 100 ML IVPB SCH (09:35)
[2022-11-03] MEDS: Folic Acid 1 MG TAB PO SCH (09:36)
[2022-11-03] MEDS: Cefepime 1 GM in Sodium Chloride 0.9% 100 ML IVPB SCH (10:42)
[2022-11-03] MEDS ORDERED: Nystatin Powder 15 GM BOT TOP PRN (13:06)
== END 2022-11-03 18:24 | disposition hospice, inpatient (51) | DRG 377 ==
LOC: ERS 21:38 → IMCU/EMU 10-25 00:23 → CCU 10-25 01:13 → 2NO 10-27 12:18 → IMCU/EMU 10-31 00:22
PROVIDERS: ADMIT Student in an Organized Health Care Education/Training Program; ATTEND Internal Medicine
PROC: 4A133R1 Monitoring of Arterial Saturation, Peripheral, Percutaneous Approach (ICD-10-PCS; 2022-10-25)
PROC: 0DJ08ZZ Inspection of Upper Intestinal Tract, Via Natural or Artificial Opening Endoscopic (ICD-10-PCS; principal; 2022-10-27)
PROC: 3E0333Z Introduction of Anti-inflammatory into Peripheral Vein, Percutaneous Approach (ICD-10-PCS; 2022-10-31)
DX: K92.1 Melena (principal); E43 Unspecified severe protein-calorie malnutrition; G93.41 Metabolic encephalopathy; I21.A1 Myocardial infarction type 2; R57.8 Other shock; U07.1 COVID-19; T67.01XA Heatstroke and sunstroke, initial encounter; E87.0 Hyperosmolality and hypernatremia; M62.82 Rhabdomyolysis; N17.9 Acute kidney failure, unspecified; I48.21 Permanent atrial fibrillation; E87.3 Alkalosis; F10.131 Alcohol abuse with withdrawal delirium; E87.21 Acute metabolic acidosis; R64 Cachexia; I10 Essential (primary) hypertension; Z51.5 Encounter for palliative care; E86.0 Dehydration; I34.0 Nonrheumatic mitral (valve) insufficiency; E86.9 Volume depletion, unspecified; T67.5XXA Heat exhaustion, unspecified, initial encounter; E87.6 Hypokalemia; E86.1 Hypovolemia; E83.42 Hypomagnesemia; E83.39 Other disorders of phosphorus metabolism; Z66 Do not resuscitate; R06.03 Acute respiratory distress; E87.8 Other disorders of electrolyte and fluid balance, not elsewhere classified; K22.2 Esophageal obstruction; K44.9 Diaphragmatic hernia without obstruction or gangrene; Z98.890 Other specified postprocedural states; Z98.49 Cataract extraction status, unspecified eye; Z68.21 Body mass index [BMI] 21.0-21.9, adult; R13.10 Dysphagia, unspecified; Z91.148 Patient's other noncompliance with medication regimen for other reason; Z79.01 Long term (current) use of anticoagulants; Z79.899 Other long term (current) drug therapy; Z78.1 Physical restraint status
CPT/HCPCS: 36415; 36416; 36600; 51702; 70450; 71045; 74018; 74176; 80048; 80053; 80202; 80306; 80307; 81001; 82306; 82550; 82553; 82570; 82805; 83605; 83735; 83880; 84100; 84145; 84156; 84300; 84484; 84540; 85025; 85610; 85730; 86850; 86900; 86901; 87040; 87086; 93005; 96365; 96375; 97139; C9113; J0692; J1642; J1644; J1650; J1940; J2060; J2272; J2543; J2704; J3370; J3370-JW; J3411; J3475; J3480; J3490; J7050; J7070; J7120; J7999; U0002

== ENCOUNTER 2022-11-03 18:41 | Inpatient (IN) | payer OTHER ==
[2022-11-03] MEDS ORDERED: Morphine 4 MG/ML VIAL SLOW IVP PRN (18:57)
[2022-11-03] MEDS ORDERED: Lorazepam 2 MG/ML VIAL SLOW IVP PRN (18:58)
[2022-11-03] MEDS: Morphine 4 MG/ML VIAL SLOW IVP SCH ×2 (20:08→22:27)
[2022-11-04 00:38] VITALS: BP 106/66
[2022-11-04 00:45] VITALS: BMI 19.0
[2022-11-04] MEDS: Morphine 4 MG/ML VIAL SLOW IVP SCH ×10 (02:05→17:52)
[2022-11-04 07:28] VITALS: TEMP 95.7
== END 2022-11-04 18:20 | disposition expired | DRG 951 ==
LOC: IMCU/EMU 18:41
PROVIDERS: ADMIT Family Medicine; ATTEND Family Medicine
DX: Z51.5 Encounter for palliative care (principal); G93.41 Metabolic encephalopathy; U07.1 COVID-19; E43 Unspecified severe protein-calorie malnutrition; J96.90 Respiratory failure, unspecified, unspecified whether with hypoxia or hypercapnia; F10.931 Alcohol use, unspecified with withdrawal delirium; M62.82 Rhabdomyolysis; I48.20 Chronic atrial fibrillation, unspecified; N17.9 Acute kidney failure, unspecified; R57.8 Other shock; Z68.27 Body mass index [BMI] 27.0-27.9, adult
CPT/HCPCS: J2060; J2270